=== PATIENT | male | born 1985 | race Two or more races ===

== ENCOUNTER 2021-03-31 01:37 | Emergency (ER) | payer MEDICAID ==
[~2021-03-31] VITALS: Ht 165.1 cm; Wt 81.6 kg
[2021-03-31 01:37] VITALS: BP 136/91
[2021-03-31 02:51] LABS: Basophils # (auto) 0.1 10 ^3/uL (0-0.2); Eosinophils # (auto) 0.1 10 ^3/uL (0-0.8); Eosinophils % (auto) 2.2 % (0.0-7.0); Hematocrit 44.5 % (41.0-53.0); Hemoglobin 15.5 g/dL (13.5-17.5); Lymphocytes # (auto) 2.6 10 ^3/uL (0.4-5.4); Mean Corpuscular Hemoglobin 30.1 pg (28.0-32.0); Mean Corpuscular Hgb Conc. 34.9 g/dL (32.0-36.0); Mean Corpuscular Volume 86.3 fL (80.0-100.0); Monocytes # (auto) 0.6 10 ^3/uL (0-1.3); Monocytes % (auto) 9.1 % (0.0-12.0); Neutrophils # (auto) 3.1 10 ^3/uL (1.6-8.6); Neutrophils % (auto) 47.7 % (37.0-80.0); Platelet Count (auto) 239 10^3/uL (140-450); Red Blood Cells 5.16 10^6/uL (4.5-5.90); Red Cell Distribution Width 13.4 % (11.8-14.3); White Blood Cell 6.5 10^3/uL (4.4-10.8)
[2021-03-31 03:09] LABS: INR 0.92 (0.9-1.15); Partial Thromboplastin Time 27.1 sec (23.0-31.2); Potassium 3.4 mmol/L (3.5-5.1)
[2021-03-31 03:13] LABS: BUN/Creatinine Ratio 14.5; Calcium 8.1 mg/dL (8.5-10.1)
[2021-03-31 03:15] LABS: Bilirubin, Total 0.3 mg/dL (0.2-1.0); Total Protein 7.5 g/dL (6.4-8.2)
[2021-03-31] MEDS ORDERED: ACETAMINOPHEN/CODEINE#3 (300/30mg) TAB PO ONE (03:45)
[2021-03-31] MEDS ORDERED: ONDANSETRON ODT 4 MG TAB PO ONE (03:45)
[2021-03-31] MEDS ORDERED: POTASSIUM CHL 20 Meq TABLET PO ONE (03:45)
== END 2021-03-31 04:26 | disposition home or self-care (01) ==
LOC: ER 01:40
DX: G43.909 Migraine, unspecified, not intractable, without status migrainosus (principal); J01.30 Acute sphenoidal sinusitis, unspecified; E86.0 Dehydration; F17.210 Nicotine dependence, cigarettes, uncomplicated
CPT/HCPCS: 36415; 70450; 80053; 85025; 85610; 85730; 99284; Q0162

== ENCOUNTER 2021-08-01 21:58 | Emergency (ER) | payer MEDICAID ==
[~2021-08-01] VITALS: Ht 165.1 cm; Wt 81.2 kg
[2021-08-02 00:14] VITALS: BP 136/81
[2021-08-02] MEDS ORDERED: KETOROLAC TROMETH 60MG/2ML VIAL IM ONE (00:15)
== END 2021-08-02 01:05 | disposition home or self-care (01) ==
LOC: ER 21:58
DX: G43.909 Migraine, unspecified, not intractable, without status migrainosus (principal); M54.2 Cervicalgia; F17.210 Nicotine dependence, cigarettes, uncomplicated; Y04.2XXA Assault by strike against or bumped into by another person, initial encounter; Y93.89 Activity, other specified; Y92.89 Other specified places as the place of occurrence of the external cause; Y99.8 Other external cause status
CPT/HCPCS: 70250; 71045; 96372; 99284; J1885